=== PATIENT | male | born 1965 | race Caucasian/White ===

== ENCOUNTER 2020-06-01 12:38 | Emergency (ER) | payer BC ==
[2020-06-01 13:36] VITALS: O2SAT 97
--- NOTE | 2020-06-01 13:45 | ERPHSYRPT ---
- History of Present Illness Time Seen by Provider: 06/01/20 13:30 Source: patient Exam Limitations: no limitations Patient Subjective Stated Complaint: pt reports he was lifting a small 4 garvey earlier today and felt a "tear" in his right elbow area. pt reports limted range of motion and pain. Triage Nursing Assessment: pt is aox3, pupils perrl, afebrile, resps easy and non labored, cap refill < 3 seconds, radial pulses strong and equal, pt skin pink warm dry. pt with limited ROM to the right upper extremity, increased pain with movement, skin is intact, sensation intact. Physician History: 55 years old right-handed dominant male presented in the ER with chief complaint of sudden onset right elbow pain with difficulty supination flexion after he lifted a 4 garvey which was quite happy and felt a paper tearing sensation in the anterior elbow area. Since morning he is having constant pain which is aggravated with minimal movements and partial relief with keeping it still and partially flexed. No swelling or erythema noticed. Occurred: this morning Method of Injury: other Quality: constant, sharpness Severity of Pain-Max: moderate Severity of Pain-Current: moderate Extremities Pain Location: elbow: right Modifying Factors: Improves With: immobilization, rest. Worsens With: movement Allergies/Adverse Reactions: No Known Drug Allergies Allergy (Unverified 06/01/20 13:36) Hx Tetanus, Diphtheria Vaccination/Date Given: Yes Hx Influenza Vaccination/Date Given: No Hx Pneumococcal Vaccination/Date Given: No Immunizations Up to Date: Yes Travel Risk - International Travel Have you traveled outside of the country in past 3 weeks: No - Coronavirus Screening Are you exhibiting any of the following symptoms?: No Close contact with a COVID-19 positive Pt in past 14-21 Days: No - Review of Systems Constitutional: No Symptoms Eyes: No Symptoms Ears, Nose, & Throat: No Symptoms Respiratory: No Symptoms Cardiac: No Symptoms Abdominal/Gastrointestinal: No Symptoms Musculoskeletal: Injury, Joint Pain Skin: No Symptoms Neurological: No Symptoms Psychological: No Symptoms Endocrine: No Symptoms - Past Medical History Pertinent Past Medical History: No - Past Surgical History Past Surgical History: Yes Other Surgical History: back surgery r/t sciatic nerve - Social History Smoking Status: Never smoker Exposure to second hand smoke: No Drug Use: none Patient Lives Alone: No - Nursing Vital Signs Nursing Vital Signs: Initial Vital Signs Pulse Rate 76 06/01/20 13:25 Respiratory Rate 20 06/01/20 13:25 Blood Pressure 133/77 06/01/20 13:25 O2 Sat by Pulse Oximetry 97 06/01/20 13:25 Pain Scale Pain Intensity 10 - Physical Exam General Appearance: no apparent distress Neck Exam: normal inspection, full range of motion Cardiovascular/Respiratory Exam: normal breath sounds, regular rate/rhythm Shoulder Exam: normal inspection, non-tender, no evidence of injury, normal ROM Elbow/Forearm Exam: limited ROM (Right elbow with tenderness in the antecubital fossa/bicep tendon area with limited supination/flexion. Distal neurovascular well intact.), pain, soft tissue tenderness Wrist Exam: normal inspection Hand Exam: normal inspection Neuro/Tendon Exam: normal sensation Mental Status Exam: alert Skin Exam: normal color SpO2 Interpretation: normal SpO2: 97 O2 Delivery: Room Air Ordered Tests: Active Orders 24 hr Category Date Time Status Splint STAT Care 06/01/20 14:51 Active ELBOW (MINIMUM 3 VIEWS) Stat Exams 06/01/20 13:55 Taken - Progress Progress: unchanged Progress Note: 06/01/20 ruled out fracture dislocation in the elbow. I believe patient has a distal bicep tendon partial tear. Placed in splint, recommended outpatient Ortho clinic follow-up for further evaluation and management. Recommended NSAIDs. Counseled pt/family regarding: diagnosis, need for follow-up, rad results - Departure Departure Disposition: Home Clinical Impression: Injury of tendon of biceps Condition: Stable Critical Care Time: No Referrals: REINA SAL [Primary Care Provider] - Follow Up with PCP/3 days SAHYY PARKS NP [NON-STAFF PHY W/O PRIVILEGES] - (Call tomorrow for appointment.) Instructions: Biceps Tendon Rupture (DC) Additional Instructions: Take Tylenol/ibuprofen as needed. Avoid heavy exertional activities. Follow-up with Ortho clinic. Prescriptions: Ibuprofen 600 mg PO Q6HPRN PRN 10 Days #20 tablet PRN Reason: Pain
[2020-06-01 15:12] VITALS: BP 132/68; PULSE 74
--- NOTE | 2020-06-01 19:49 | XRAY ---
Indication: Pain following fall. Comparison: None 3 view right elbow obtained. No bony, articular, or soft tissue abnormalities.
== END 2020-06-01 15:11 | disposition home or self-care (01) ==
LOC: ED 12:38
DX: S46.291A Other injury of muscle, fascia and tendon of other parts of biceps, right arm, initial encounter (principal); X50.0XXA Overexertion from strenuous movement or load, initial encounter; X50.9XXA Other and unspecified overexertion or strenuous movements or postures, initial encounter; Y93.89 Activity, other specified; Y92.9 Unspecified place or not applicable
CPT/HCPCS: 29105; 73080; 99283